=== PATIENT | male | born 1980 | race Caucasian/White ===

== ENCOUNTER 2021-03-07 19:32 | Emergency (ER) | payer OTHER ==
[~2021-03-07] VITALS: Ht 185.4 cm; Wt 101.5 kg
[2021-03-07 19:47] VITALS: BP 122/64
--- NOTE | 2021-03-07 21:54 | NUR ---
DPatient/Caregiver given discharge instructions and they have confirmed that they understand the instructions. Patient ambulatory with steady gait.
== END 2021-03-07 21:56 | disposition home or self-care (01) ==
LOC: ED 20:00
DX: J06.9 Acute upper respiratory infection, unspecified (principal); Z20.822 Contact with and (suspected) exposure to COVID-19
CPT/HCPCS: 87081; 87880; 99283; U0003; U0005